=== PATIENT | female | born 1965 | race Caucasian/White ===

== ENCOUNTER 2017-02-03 10:18 | Observation (INO) | payer OTHER ==
[~2017-02-03] VITALS: Ht 162.6 cm; Wt 62.6 kg
[2017-02-03 11:21] LABS: HEMOGLOBIN 13.7 gm/dl (12.3-15.3); RED BLOOD COUNT 4.52 M/UL (4.00-5.10); WHITE BLOOD COUNT 5.5 K/UL (4.5-11.0)
[2017-02-03 11:48] LABS: BUN/CREATININE RATIO 17 (0-10)
[2017-02-03] MEDS ORDERED: NEURONTIN 300300 MG PO (16:22)
[2017-02-03] MEDS ORDERED: LEVOTHYROXINE50 MCG PO (16:22)
[2017-02-03] MEDS ORDERED: ULTRAM50 MG PO (16:23)
== END 2017-02-03 20:08 | disposition left against medical advice (07) ==
LOC: ER1 10:18 → ZEROF 14:45 → M/S 15:22
PROVIDERS: Emergency Medicine; ADMIT Family Medicine
DX: R07.89 Other chest pain (principal); E03.9 Hypothyroidism, unspecified; M54.9 Dorsalgia, unspecified; G89.29 Other chronic pain; Z90.710 Acquired absence of both cervix and uterus; Z82.49 Family history of ischemic heart disease and other diseases of the circulatory system
CPT/HCPCS: 36415; 71010; 80053; 82150; 82550; 82553; 83690; 83735; 83874; 83880; 84484; 85025; 85379; 85610; 85730; 93005; 99285; G0378

== ENCOUNTER → 2021-07-13 | Day surgery (SDC) | payer OTHER ==
[~2021-07-13] MED LIST: CERTAVITE-ANTI1 EACH PO; CYCLOBENZAPRINE5 MG PO; DULOXETINE HCL30 MG PO; LEVOTHYROXINE50 MCG PO; LISINOPRIL10 MG PO; LOPRESSOR 25 MG25 MG PO; NEURONTIN 300300 MG PO; PROTONIX40 MG PO; ULTRAM50 MG PO
== END | disposition home or self-care (01) ==
LOC: OR 06:53
DX: K92.1 Melena (principal); K29.50 Unspecified chronic gastritis without bleeding; K29.80 Duodenitis without bleeding; I10 Essential (primary) hypertension; G40.909 Epilepsy, unspecified, not intractable, without status epilepticus; E03.9 Hypothyroidism, unspecified; F41.9 Anxiety disorder, unspecified; M19.90 Unspecified osteoarthritis, unspecified site; F32.A Depression, unspecified; Z86.010 Personal history of colon polyps; Z79.899 Other long term (current) drug therapy; Z20.822 Contact with and (suspected) exposure to COVID-19
CPT/HCPCS: J2704; J7120